=== PATIENT | male | born 1950 | race Two or more races ===

== ENCOUNTER → 2025-08-29 09:05 | Outpatient (REF) | payer MEDICARE, BC, SELFPAY ==
[2025-08-29 10:03] LABS: INR 1.05; PT 14.0 Sec (11.4-14.6)
[2025-08-29 10:11] LABS: Hematocrit 44.6 % (39.0-52.0); Hemoglobin 14.3 g/dL (13.0-18.0); Mean Corp Hgb Conc. 32.1 g/dL (33.0-37.0); Mean Corpuscular Volume 97.0 fL (80.0-94.0); Nucleated Red Blood Cells % 0 % (-); Platelet Count 213 10^3/uL (130-400); Red Cell Dist. Width 12.9 % (11.5-14.5)
[2025-08-29 10:23] LABS: ALT (SGPT) 36 U/L (0-50); AST (SGOT) 44 U/L (17-59); Albumin 4.5 g/dl (3.5-5.0); Alkaline Phosphatase 72 U/L (38-126); Blood Urea Nitrogen 22 mg/dl (9-20); Calcium 9.5 mg/dl (8.4-10.2); Carbon Dioxide 28 mmol/L (22-30); Chloride 102 mmol/L (98-107); Glucose 70 mg/dl (70-99); Magnesium 1.9 mg/dl (1.6-2.3); Potassium 5.1 mmol/L (3.5-5.1); Sodium 136 mmol/L (135-145); Total Protein 7.5 g/dl (6.3-8.2); eGFR > 60.00
== END ==
LOC: SDSPAT 09:05
PROVIDERS: ATTENDING PHYSICIAN Internal Medicine Cardiovascular Disease
DX: I48.0 Paroxysmal atrial fibrillation (principal)
CPT/HCPCS: 36415; 80053; 83735; 85025; 85610; 93005

== ENCOUNTER 2025-08-30 05:52 | Day surgery (SDC) | payer MEDICARE, BC, SELFPAY ==
[2025-08-29 09:28] VITALS: BMI 22.6
[2025-08-30] VITALS (7 sets, daily range): BP systolic 115–151; BP diastolic 69–93; BMI 22.6
[2025-08-30] MEDS: NSS 500 IV (07:13)
--- NOTE | 2025-08-30 09:03 | ITS.CL.ABL ---
Res Counselor - Ablation
Ablation
Procedure Report:
ELECTROPHYSIOLOGY ABLATION STUDY
DATE:: August 30, 2025�����������������������������REFERRING: Dr. Nikolay Churchill
INDICATION: Paroxysmal supraventricular tachycardia in the form of atrial fibrillation.��History of sick sinus syndrome
HISTORY: See H and P.��History of sick sinus syndrome
ANTIARRHYTHMIC DRUG: Limited due to bradycardia
PRE-PROCEDURE MADAN: No atrial thrombus on intracardiac ultrasound
PRESENTING RHYTHM: Sinus bradycardia
'TIME-OUT':��called and confirmed.
SEDATION/ANESTHESIA:��provided via the anesthesia department using general anesthesia (LMA).
INTRAVENOUS/ARTERIAL ACCESS:
Right femoral venous -8Fr
Left femoral venous - 8 Fr, 6 Fr
[id number] suture bilaterally
Ultrasound guidance for bilateral femoral vein access was utilized by me to obtain access with demonstration of normal anatomy
CHADS-VASC Score:
HAS-Bled Score
PROCEDURE:
1.��A decapolar CS catheter was placed within the CS for mapping and pacing.��This was also used as the reference catheter for the 3-D map.
2. The intracardiac ultrasound catheter was positioned in the RA to identify the FO for targeting of transseptal puncture, assist��in identification of the pulmonary vein ostia, monitoring pre and post ablation pulmonary vein flow velocities,
monitoring for 'bubble' formation during RF application as a sign of thermal injury,��and to monitor for pericardial effusion during mapping and ablation procedure.���Left atrial size, LV ejection fraction, and pulmonary vein flows were monitored
pre and post ablation procedure. The other valves were inspected and found to be free of significant regurgitation or stenosis.
3.��Half of the calculated heparin bolus was administered prior to the first transeptal puncture.��Transseptal puncture was performed to diagnose RA and LA pressure so that safety of LA mapping and ablation could be further assessed, and to access
the left atrium and pulmonary veins for mapping and ablation.��This entailed advancing an 16.8 [place]gasque RF wire, sheath with dilator into the superior vena cava and withdrawing both (monitoring intracardiac ultrasound, fluoroscopy and tip pressure)
with the tip oriented toward the atrial septum.��The fossa ovalis was engaged (indicated by sudden displacement of the sheath tip as well as tenting of the fossa seen on intracardiac ultrasound).��Left atrial access required a pass with the
Brockenbrough needle extended.��Left atrial catheter position was confirmed by pressure monitoring (RA mean pressure 2 mm Hg and LA mean presure 10 mm Hg after hydration 14 mmHg with 1 L), LA saturation (99%),��as well as fluoroscopy.��The sheath
was advanced over the dilator and positioned in the left atrium.��This procedure was repeated for the Agilis sheath.��The remainder of the calculated heparin bolus was administered and heparin was
infused to maintain ACT at 300 -350 seconds throughout the case.
4.��RA pacing was performed via the proximal decapolar poles and LA pacing was performed via the distal decapolr poles.
5. A quadrapolar catheter was first positioned at the His position for His Bundle recording which was tagged via the 3-D Navex sytem, and then passed to the RVA for RV pacing and recording.
6. The Penta spline grid catheter placed in each of the LIPV, LSPV, RSPV and the RIPV.��
7.��Next, a 3-D map was created using Navex.���A 3-D reconstructed CT image was compared to the 3-D Navex map to assist in anatomic interpretation, mapping and ablation.��The CT image and the NavX image were fused.
8. 66 lesions were given in total. Initial pass with all of in basket post all 4 pulmonary veins and fluoroscopy post to the roof posterior wall and floor of the left atrium. Continued signal from the roof outside the left superior pulmonary vein
with the vein isolated was noted and additional flower lesions were given to the roof outside the left superior pulmonary vein. Total of 66 lesions as above. Post procedure EP study demonstrated normal sinus node function with normal sinus node
recovery time and AV Wenckebach less than 400 ms.
9. The patient was noninducible for any other types of atrial flutter or atrial fibrillation triggers beyond the PVI and posterior wall as above.
TOTAL FLOURO TIME: 12.1 minutes 120 mGy
TOTAL RF DURATION: 0 minutes
REVERSAL OF HEPARIN: 35 mg of protamine, slow IV administration
COMPLICATIONS:
None
Intracardiac US shows no pericardial effusion post ablation.
SUMMARY:��
Complex left atrial mapping and ablation.
Isolation of all 4 pulmonary veins and the left atrial posterior wall as above.
RECOMMENDATIONS:
1. Ambulate in 4 hours
2. Resume anticoagulation uninterrupted with recommendation for lifelong given prior TIA
3.��Can consider ILR implant as outpatient in [place]
4.� Could tolerate a class I or class III and arrhythmic drug as his sinus node recovery times normal under anesthesia
Copy to: Dr. Arnie [facility] gastroenterology in [place] can send a copy to the patient's address
[2025-08-30 13:30] LABS: ACT-LR - POC 271 Seconds (116-155)
[2025-08-30 13:30] LABS: ACT-LR - POC 216 Seconds (116-155)
--- NOTE | 2025-08-30 14:25 | W.PN.UPDATE ---
Update Note
Progress Note Update
Pt seen post PFA. Bilat groin sites without ht/bleeding, non tender. Post EKG SB 50s, no acute changes. Resume eliquis tonight at usual time. Followup with primary cardiology in [place] once he returns home. Home later today if groin sites/tele
remain stable.
== END 2025-08-30 14:00 | disposition home or self-care (01) ==
LOC: CATH 05:52
PROVIDERS: ATTENDING PHYSICIAN Internal Medicine Cardiovascular Disease
DX: I48.0 Paroxysmal atrial fibrillation (principal); I49.5 Sick sinus syndrome; I48.92 Unspecified atrial flutter; E78.5 Hyperlipidemia, unspecified; F41.9 Anxiety disorder, unspecified; I47.10 Supraventricular tachycardia, unspecified; Z79.01 Long term (current) use of anticoagulants; Z79.899 Other long term (current) drug therapy; Z86.73 Personal history of transient ischemic attack (TIA), and cerebral infarction without residual deficits; Z88.8 Allergy status to other drugs, medicaments and biological substances; D50.9 Iron deficiency anemia, unspecified
CPT/HCPCS: C1894; C1732; C1769; C1892; C1759; C1730; 36415; 85347; 86850; 86900; 86901; 93005; 93656; 93657; C1733; C1766